=== PATIENT | male | born 1990 | race Two or more races ===

== ENCOUNTER 2025-06-05 08:58 | Inpatient (IN) | payer MEDICAID ==
[~2025-06-05] VITALS: Ht 172.7 cm; Wt 116.0 kg
[2025-06-05] MEDS: normal saline 1000ML IV soln IVB ONE (09:29)
--- NOTE | 2025-06-05 09:36 | RADIOLOGY REPORT ---
EXAM: DI CHEST,SINGLE VIEW Indication: CP Technique: Single frontal view of the chest was obtained Comparison: None FINDINGS: Lines and Tubes: None Lungs: No focal consolidation. Pleura: No effusion. No pneumothorax. Cardiomediastinal contours: Unremarkable Bones: No acute osseous abnormality. IMPRESSION: No acute cardiopulmonary disease.
[2025-06-05 09:44] LABS: MEAN PLATELET VOLUME 9.3 FL (7.4-10.4); RED CELL DISTRIBUTION WIDTH 13.4 % (11.5-14.5)
--- NOTE | 2025-06-05 09:51 | Physician Documentation ---
History of Present Illness General Chief Complaint: See Chief Complaint Stated Complaint: DIZZINESS Time Seen by MD: 09:15 OK to notify your PCP?: No Source: patient, RN/MD, EMS, RN notes reviewed, EMS notes reviewed, old records Mode of Arrival: EMS Exam Limitations: no limitations History of Present Illness Initial Comments 35-year-old male, without significant medical history other than cardiomegaly, transferred to this facility from [facility] for higher level of care due to a "4 beat run of V-tach while being transported in an ambulance to their facility yesterday. Physician wanted to transfer him yesterday, however patient left against medical advice. He returned to their facility last night for re-evaluation and was amenable to transfer. Patient reports that he has been feeling unwell five days ago, and at that time had a fever that resolved after a DayQuil. Over the last few days he has had shortness of breath and chest pain. He also had some dizziness and a near syncopal episode. He reports that during transport yesterday he had an episode of arrhythmia in the ambulance and was symptomatic at the time. Labs at the outside facility showed: WBCs 6. 3, hemoglobin 16.4, hematocrit 47.6, D-dimer 0.30, troponin less than 0.01, BNP less than 10, positive for THC, negative COVID-19. Medication Reconciliation Allergies: Coded Allergies: No Known Allergies (Unverified , 06/05/25) Scheduled Lisinopril (Lisinopril), 1 TAB PO DAILY, (Reported) Past Medical History Past Medical History: *CARDIOVASCULAR* Past Surgical History: no surgical history Drug Use: marijuana Lives In: Home Review of Systems All Other Systems at this time: Reviewed and Negative ROS shortness of breath as well as other positive symptoms as stated above in the HPI, otherwise all systems are reviewed and negative. Physical Exam Physical Exam Vital Signs: RN Vital Signs have been reviewed: Yes, Temperature: 98.2, Heart Rate: 68, Respiratory Rate: 16, BP: 148/99, Pulse Oximetry: 99, Weight: 116.000 Oxygen Flow Rate: 0 Pulse Oximetry Reflects: adequate oxygenation Physical Exam VITALS: Reviewed and as above. GENERAL: Alert, no apparent distress. HEENT: Normocephalic, atraumatic, PERRL, EOMI, dry mucosa RESPIRATORY: Lungs clear, normal breath sounds, no respiratory distress. CHEST: No accessory muscle use, no retractions CV: Regular rate, rhythm, no edema, no murmur, No: JVD GI: Soft, non-tender, bowels sounds present, no rebound, guarding, or rigidity MUSCULOSKELETAL No deformities, no edema SKIN: Diaphoretic. Warm and dry, no rash NEURO: Oriented x4, No motor or sensory deficit PSYCH: Normal mood and affect, no agitation Progress Progress Note 0958: Hospitalist paged. 1025: Case discussed with STRIPPER PRELIMINARY Hansa, hospitalist, who agrees to evaluate for admission. Results/Orders Reviewed/noted all lab results: Yes Results/Orders Orders - OHTALISHA DE JESUS MD Chest,Single View (06/05/25 09:07) Monitor (06/05/25 09:07) Saline Lock (06/05/25 09:07) Oxygen (06/05/25 09:07) Page Hospitalist (06/05/25 09:59) Fill Out Med Reconciliation (06/05/25 09:59) Completed Orders - TALISHA PRICE MD Chest,Single View (06/05/25 09:07) Cbc/Diff (06/05/25 09:07) BMP (06/05/25 09:07) PBNP (06/05/25 09:07) Electrocardiogram (06/05/25 09:07) Hs Troponin I W Calculations (06/05/25 09:07) Hs Troponin I W Calculations (06/05/25 11:07) Hs Troponin I W Calculations (06/05/25 12:07) Procalcitonin (06/05/25 09:16) Normal Saline 1000ml (0.9% Sodium Chlori (06/05/25 09:20) TSH (06/05/25 09:10) Free T4 (06/05/25 09:10) Lipid Panel (06/05/25 09:10) MG (06/05/25 09:10) Hgb A1c (06/05/25 09:10) Vital Signs 06/05/25 06/05/25 06/05/25 09:01 10:00 10:31 Temp 98.2 98.2 Pulse 68 61 Resp 16 12 10 B/P (MAP) 148/99 164/107 (126) Pulse Ox 99 99 O2 Flow Rate 0 0 Laboratory Tests Test 06/05/25 09:10 White Blood Count 5.2 Red Blood Count 5.57 Hemoglobin 16.2 Hematocrit 46.3 Mean Corpuscular Volume 83.2 Mean Corpuscular Hemoglobin 29.0 Mean Corpuscular Hemoglobin Concent 34.9 Red Cell Distribution Width 13.4 Platelet Count 182 Mean Platelet Volume 9.3 Neutrophils (%) (Auto) 66.7 Lymphocytes (%) (Auto) 22.7 Monocytes (%) (Auto) 10.1 Eosinophils (%) (Auto) 0.1 Basophils (%) (Auto) 0.4 Neutrophils # (Auto) 3.5 Lymphocytes # (Auto) 1.2 Monocytes # (Auto) 0.5 Eosinophils # (Auto) 0.0 Basophils # (Auto) 0.0 CBC Comment Sodium Level 138 Potassium Level 3.0 *L Chloride Level 103 Carbon Dioxide Level 20.3 L Anion Gap 15 Blood Urea Nitrogen 11 Creatinine 0.88 Estimated GFR/1.73 m2 > 90 BUN/Creatinine Ratio 12.5 Glucose Level 144 H Hemoglobin A1c 5.3 Calcium Level 8.3 L Magnesium Level 2.3 Troponin I High Sensitivity 10 Pro-B-Type Natriuretic Peptide 32 Albumin 3.9 Triglycerides Level 111 Cholesterol Level 119 LDL Cholesterol 75 HDL Cholesterol 27 L Cholesterol/HDL Ratio 4.4 Procalcitonin < 0.05 Thyroid Stimulating Hormone (TSH) 1.33 Free Thyroxine 1.51 H Chemistry Comments EKG/XRAY/CT/US/VASC/MRI EKG : Additional Comment 0902: EKG interpreted by myself to show NSR at a rate of 64bpm. Normal axis. No STEMI, no acute ST changes. Chest X-Ray : Additional Comments EXAM: DI CHEST,SINGLE VIEW Indication: CP Technique: Single frontal view of the chest was obtained Comparison: None FINDINGS: Lines and Tubes: None Lungs: No focal consolidation. Pleura: No effusion. No pneumothorax. Cardiomediastinal contours: Unremarkable Bones: No acute osseous abnormality. IMPRESSION: No acute cardiopulmonary disease. Reviewed by myself. Medical Decision Making Findings The patient is a 35-year-old male who has presented several times to [facility] and on presentation today EMS had reported that he had a four beat run of V-tach on arrival to the emergency department. The patient was transferred for further cardiac evaluation. Of note the patient is diaphoretic. The patient's cardiac workup in the emergency department was unremarkable he has a normal-appearing EKG with no apparent ischemia. The patient's labs were reviewed. The prior hospitalizations were reviewed. The patient's cardiac markers were unremarkable. The patient's pulse oximetry was interpreted by me as normal in his conveyor monitor was interpreted by me as being a sinus rhythm. Given the patient's reported history of ventricular tachycardia the patient will be admitted to the hospitalist case has been discussed with the hospitalist. I also reviewed the patient's chest x-ray demonstrated a normal cardiac silhouette normal lung auguste as well as an all and no bony structures I interpreted the x- ray has a normal chest x-ray I have reviewed the radiologist's interpretation as well. Departure Time of Disposition: 09:58 Disposition: 09 ADMITTED INPATIENT Admitted to Inpatient Unit: yes, to hospitalist Impression: Primary Impression: Shortness of breath Additional Impression: Dizziness Condition: Fair Education Educated: Patient Educated regarding: diagnosis, treatment, need for follow up Signature Scribe Signature: Scribed for Talisha Price MD by Tima Leung . 06/05/25 09:53 Attestation: The note accurately reflects work and decisions made by me.Talisha Price MD 06/09/25 13:10 TALISHA PRICE MD Jun 05, 2025 09:51 TIMA SMALL Jun 05, 2025 09:59
[2025-06-05] MEDS ORDERED: ondansetron 4mg rapidly disintigrating tab PO PRN (10:25)
[2025-06-05] MEDS ORDERED: potassium Cl 20 mEq SR tablet PO PRN ×2 (10:25)
[2025-06-05] MEDS ORDERED: HYDROcodone/acetaminophen 10/325mg tab PO PRN (10:25)
[2025-06-05] MEDS ORDERED: magnesium hydroxide 30ml (MOM) UD suspension PO PRN (10:25)
[2025-06-05] MEDS ORDERED: magnesium sulf-water 2g/50mL 50 ML IV PRN (10:25)
[2025-06-05] MEDS ORDERED: HYDROcodone/acetaminophen 5mg/325mg tablet PO PRN (10:25)
[2025-06-05] MEDS ORDERED: ondansetron/PF 4mg/2ml inj IV PRN (10:25)
[2025-06-05] MEDS ORDERED: mag hydrox/Alum hydrox/simeth 30ml oral suspension PO PRN (10:25)
[2025-06-05] MEDS ORDERED: magnesium sulf-water 4G/100mL 100 ML IV PRN (10:25)
[2025-06-05] MEDS ORDERED: LISI10TA27 PO (10:32)
[2025-06-05 10:42] LABS: CREATININE 0.88 MG/DL (0.60-1.10); PRO BRAIN NATRIURETIC PEPTIDE 32 PG/ML (0-125); TOTAL CARBON DIOXIDE 20.3 MMOL/L (24-32); eCRCL 111 ML/MIN; eGFR > 90 ML/MIN
[2025-06-05] MEDS: aspirin 81mg, enteric-coated 1 TAB TABLET.DR PO ONE (10:49)
[2025-06-05] MEDS: metoprolol succinate 25mg (24-HOUR) SR. Tablet PO ONE (10:49)
[2025-06-05] MEDS: normal saline 1000ml 1,000 ML IV SCH (10:49)
[2025-06-05] MEDS: PERFLUTREN PROTEIN-A MICROSPHR (Optison) 0.22 MG/ML 3ML VIAL IV ONE (10:49)
[2025-06-05 11:30] VITALS: TEMP 98.4
--- NOTE | 2025-06-05 12:12 | HISTORY AND PHYSICAL ---
History & Physical Providers to CC ~ History of Present Illness Reason for Admit\Complaint: r/o ACS, colitis History of Present Illness Lance Contreras is a 35-year-old male with a past medical history of hypertension not on antihypertensives, medication noncompliance, GERD, obesity who presented to the ED with chief complaint of acute onset localized chest pain with associated symptoms of shortness of breath x 6 days. Patient had an episode of 4 beat run vtach while being transferred in ambulance when he had a syncopal episode. Patient further reports having diarrhea x 6 days after her daughters being ill. Patient denies prior [place]/CAD, CVA, cardiac arrhythmia, DVT/PE, or GIB. Patient denies palpitations, abdominal pain, n/v. Patient is to be admitted for further workups and treatment. Allergies: Coded Allergies: No Known Allergies (Unverified , 06/05/25) Home Medications Home Medications Active Reported Lisinopril 10 Mg Tablet 1 Tab PO DAILY Past Medical History Past Medical History Obesity Hypertension Past Surgical History Surgical History Comment Denies Past Social History Social History Comment Alcohol: Denies Tobacco: Denies, never Illicit drug use: Marijuana Living situation: Lives at home with family ROS ROS Other than positives in HPI, all 14 review of systems are negative Exam Vitals: Vital Signs Date Time Temp Pulse Resp B/P (MAP) Pulse Ox O2 Delivery O2 Flow Rate FiO2 06/05/25 11:30 98.4 61 13 172/112 (132) 99 0 General: A&Ox 3, NAD HEENT: Normocephalic, PERRLA Neck: Supple, trachea midline, no JVD Chest: Clear to auscultation bilaterally Cardiovascular: RRR, S1&S2 Abdomen: Soft and nontender Extremities: No cyanosis/clubbing/or edema Central Nervous System: CN II-XII intact, no focal deficits Musculoskeletal: No paraspinal muscle tenderness, no muscle spasm Skin: Warm and intact Diagnostic Data Last Recorded Lab Results: 06/05/25 0910 06/05/25 0910 Additional Plan 35-year-old male with a past medical history of hypertension not on antihypertensives, medication noncompliance, GERD, obesity who presented to the ED with chief complaint of acute onset localized chest pain with associated symptoms of shortness of breath x 6 days. Patient had an episode of 4 beat run vtach while being transferred in ambulance when he had a syncopal episode. Patient further reports having diarrhea x 6 days after her daughters being ill. Assessment & Plan ACS- to rule out Non-sustained Vtach Syncope Hypokalemia likely 2/2 GI loss Colitis HTN, uncontrolled Hypertensive urgency Medication noncompliance Class II obesity -trops negative, procal neg, wbc wnl, FT4 mildly elevated, d-dimer 0.3, EKG sinus 64bpm, no ST elevation/depression -IVF, aspirin, metoprolol, statin, follow stool cx, urine K, potassium replacement, TTE, Lexiscan, consulted on-call ruffling hemmer automatic Dr. Lee DVT/VTE Prophylaxis: heparin Code Status: Full Code I spent a total of 35 minutes discussing Advanced Care Planning measures with the patient. Advance care planning: Discussed with patient the importance of advance care planning in case of emergent situation. We discussed various resuscitative measures/ ACP with the patient at the time of admission. Patient voiced understanding and patient has decided on a full code status. Date of Service: Jun 05, 2025 Billing Provider: ERICK HARDIN Common Visit Codes: 08725-[id number] INP/OBS CARE (HIGH) Secondary Visit Codes: 60823-[id number] CARE PLAN 30 MINUTES ERICK HARDIN Jun 05, 2025 12:12
[2025-06-05] MEDS ORDERED: aminophylline 250mg/10ml inj. IV PRN (12:20)
[2025-06-05] MEDS ORDERED: metoprolol tartrate 1mg/ml inj IV PRN (12:20)
[2025-06-05] MEDS ORDERED: regadenoson 0.4mg/5ml syringe IV PRN (12:20)
--- NOTE | 2025-06-05 12:31 | ELECTROCARDIOGRAPH REPORT ---
[facility] Test Date: 2025-06-05 Test Time: 09:02:55 Pat Name: EFE PRINGLE Department: ED Room: ED 12 Gender: M [employer]: : 1990 Requested By: TALISHA SWEENEY Order Number: [id number] Reading MD: Measurements Intervals [place] Rate: 64 P: 65 ND: 179 QRS: 60 QRSD: 112 T: 58 QT: 429 QTc: 443 Interpretive Statements Sinus rhythm Borderline intraventricular conduction delay Please click the below link to view image of tracing.
[2025-06-05] MEDS: hydrALAZINE 20mg/ml inj. IV PRN (12:35)
[2025-06-05] MEDS: normal saline 1000ml 1,000 ML IV ONE (12:40)
[2025-06-05] MEDS: potassium Cl 40MEQ/1/2NS 520ml 520 ML IV PRN (12:56)
[2025-06-05 13:26] LABS: CHOL/HDL RATIO 4.4 (0.00-4.99); LDL CHOLESTEROL 75 MG/DL (50-100)
[2025-06-05 14:39] LABS: LEUKOCYTE ESTERASE ,URINE NEGATIVE (Neg); NITRITES, URINE NEGATIVE (Neg); OCCULT BLOOD,URINE SMALL (Neg)
[2025-06-05 14:40] LABS: UA COLLECTION TYPE CLN CATCH MIDSTREAM
[2025-06-05 14:45] LABS: HYALINE CASTS 0-3 /LPF (NEGATIVE)
[2025-06-05 14:46] LABS: MUCUS STRANDS FEW /LPF (Neg); SQUAMOUS EPITHELIAL CELL,UR MANY /LPF (FEW); URINE AMPHETAMINE SCREEN NEGATIVE (Neg); URINE BARBITUATE SCREEN NEGATIVE (Neg); URINE BENZODIAZEPINES SCREEN NEGATIVE (Neg); URINE CANNABINOID SCREEN POSITIVE (Neg); URINE COCAINE SCREEN NEGATIVE (Neg); URINE METHADONE SCREEN NEGATIVE (Neg); URINE OPIATE SCREEN NEGATIVE (Neg); URINE PHENCYCLIDINE SCREEN NEGATIVE (Neg)
--- NOTE | 2025-06-05 17:14 | CARDIOLOGY REPORT ---
APPROVED REPORT EXAM: Comprehensive 2D, Doppler, and color-flow Echocardiogram. 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 135.4 cm/s AoV VTI 26.8 cm AO Peak GR. 7.3 mmHg AO Mean GR. 4 mmHg LVOT VTI 23.85 cm LVOT Peak Familia. 111.6 cm/s TERI(VTI)/BSA 3.40 cm2/m2 TERI (VTI) 3.40 cm2 Mitral Valve MV E Velocity 99.0 cm/s MV Peak Gr. 5 mmHg MV DECEL TIME 176 ms MV A Velocity 61.6 cm/s MV PHT 64 ms E/A Ratio 1.6 MVA (PHT) 3.44 cm2 MV PWxg630.1 cm/s Tricuspid Valve RAP ESTIMATE 10 mmHg Pulmonary Vein S1 Velocity 57.9 cm/s D2 Velocity 35.2 cm/s PVa Uxdrqrod94.2 cm/s PVa [id number] msec LEFT VENTRICLE Normal LV size and function. Mild concentric hypertrophy. Overall LVEF is 65%. RIGHT VENTRICLE RV appears normal in size and contractility. ATRIA Left atrium is moderately dilated. AORTIC VALVE Trileaflet AV appears sclerotic without stenosis. No insufficiency. MITRAL VALVE MV is thickened with no annular calcification or stenosis. Trace mitral regurgitation. TRICUSPID VALVE The tricuspid valve is normal in structure. Trace tricuspid regurgitation. PULMONIC VALVE The pulmonary valve is normal in structure. Trace pulmonic regurgitation. GREAT VESSELS The aortic root is normal in size. The ascending aorta is normal in size. The IVC is normal in size a nd collapses >50% with inspiration. PERICARDIUM There is no pericardial effusion. Other Information Study Quality: Adequate Conclusion Overall LVEF is 65%. Normal LV size and function. Mild concentric hypertrophy. RV appears normal in size and contractility. Trileaflet AV appears sclerotic without stenosis. No insufficiency. Trace mitral regurgitation. Trace tricuspid regurgitation. The ascending aorta is normal in size. There is no pericardial effusion.
[2025-06-05] MEDS: heparin, porcine 5000 units/ml vial SQ ONE (17:43)
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
[2025-06-05] MEDS ORDERED: K and/or MAG REPLACEMENT MC SCH (20:00)
[2025-06-05] MEDS ORDERED: docusate sod 100mg capsule PO SCH (20:00)
[2025-06-05 20:08] VITALS: BP 167/100; PULSE 89; RESP 18; O2SAT 98
[2025-06-06] MEDS ORDERED: heparin, porcine 5000 units/ml vial SQ SCH
[2025-06-06] MEDS ORDERED: aspirin 81mg, enteric-coated 1 TAB TABLET.DR PO SCH (08:00)
[2025-06-06] MEDS ORDERED: metoprolol succinate 25mg (24-HOUR) SR. Tablet PO SCH (08:00)
[2025-06-06] MEDS ORDERED: potassium Cl 20 mEq SR tablet PO STA (08:11)
--- NOTE | 2025-06-06 10:23 | DISCHARGE SUMMARY ---
Discharge Summary Providers to CC ~ Discharge Summary Admission Diagnosis: Vtach, r/o ACS Hospital Course DATE OF ADMISSION: 06/05/25 DATE OF DISCHARGE: 06/05/25 Discharge Diagnosis\Comment: ACS- unable to exclude Non-sustained Vtach Syncope Hypokalemia likely 2/2 GI loss Colitis HTN, uncontrolled Hypertensive urgency Medication noncompliance Class II obesity Left AMA Operations\Procedures: None Consultants: Pbx Supervisor Jacob Izaguirre Complications: Left AMA Condition on DC: Unstable Discharge Summary: Patient is not medically cleared for discharge. However, patient left AMA despite explaining risks associated with leaving AMA. *Problems/Diagnosis: (1) Shortness of breath Status: Acute (2) Dizziness Status: Acute Total Time Spent on D/C: > 30 Minutes Date of Service: Jun 05, 2025 Billing Provider: ERICK HARDIN Common Visit Codes: NOT BILLABLE ERICK HARDIN Jun 06, 2025 10:23
== END 2025-06-05 20:08 | disposition left against medical advice (07) | DRG 198 ==
LOC: ER 09:00 → ED HOLD 10:32
PROVIDERS: ADMIT Nurse Practitioner Family; ATTEND Nurse Practitioner Family
DX: I24.9 Acute ischemic heart disease, unspecified (principal); I16.0 Hypertensive urgency; I47.20 Ventricular tachycardia, unspecified; E87.6 Hypokalemia; I10 Essential (primary) hypertension; K52.9 Noninfective gastroenteritis and colitis, unspecified; K21.9 Gastro-esophageal reflux disease without esophagitis; B34.9 Viral infection, unspecified; E86.0 Dehydration; Z53.29 Procedure and treatment not carried out because of patient's decision for other reasons; E66.812 Obesity, class 2; R55 Syncope and collapse; F51.04 Psychophysiologic insomnia; Z91.148 Patient's other noncompliance with medication regimen for other reason; Z68.38 Body mass index [BMI] 38.0-38.9, adult
CPT/HCPCS: 36415; 71045; 80048; 80061; 80305; 81001; 83036; 83735; 83880; 84132; 84133; 84145; 84439; 84443; 84484; 85025; 87045; 87046; 93005; 93306; 96361; 96374; 99285; G0378; J0360; J1644; J2470; J3480; J7030